=== PATIENT | female | born 1965 | race Caucasian/White ===

== ENCOUNTER 2016-11-26 08:16 | Day surgery (SDC) | payer MEDICAID, OTHER ==
[~2016-11-26] VITALS: Ht 157.5 cm; Wt 68.3 kg
[2016-11-26] VITALS (10 sets, daily range): BP systolic 86–126; BP diastolic 52–79
[2016-11-26] MEDS ORDERED: LIDOCAINE 1% INJ 20 ML (XYLOCAINE) VIAL ONE ×3 (08:36→12:00)
[2016-11-26] MEDS ORDERED: HEParin (CATH LAB) 2,000 ML IV ONE (08:36)
[2016-11-26] MEDS ORDERED: NS IV 1000 ML 1,000 ML ONE (08:36)
[2016-11-26 09:17] LABS: RED BLOOD COUNT 3.42 10^6/uL (4.35-5.85); RED CELL DISTRIBUTION WIDTH 12.9 % (10.0-14.5); WHITE BLOOD COUNT 10.4 10^3/uL (4.3-11.0)
[2016-11-26 09:29] LABS: PROTHROMBIN TIME PATIENT 13.2 SEC (12.2-14.7)
[2016-11-26 09:35] LABS: ALBUMIN 4.2 G/DL (3.2-4.5); BILIRUBIN,TOTAL 0.7 MG/DL (0.1-1.0); CALCIUM 8.9 MG/DL (8.5-10.1); CREATININE SERUM 1.65 MG/DL (0.60-1.30); POTASSIUM 3.6 MMOL/L (3.6-5.0); TOTAL PROTEIN 7.1 G/DL (6.4-8.2)
[2016-11-26] MEDS ORDERED: NS IV 1000 ML 1,000 ML IV SCH (10:00)
[2016-11-26] MEDS ORDERED: FLU TRIvalent (5 YOA+) 2016-17 (AFLURIA) 0.5 ML IM ONE (10:15)
[2016-11-26] MEDS ORDERED: LISI-552 PO (10:22)
[2016-11-26] MEDS ORDERED: LOVA40TA2 PO (10:22)
[2016-11-26] MEDS ORDERED: ACET-2267 PO (10:22)
[2016-11-26] MEDS ORDERED: CLON0.2T PO (10:22)
[2016-11-26] MEDS ORDERED: QUET200T2 PO ×2 (10:22)
[2016-11-26] MEDS ORDERED: PANT40TA2 PO (10:22)
[2016-11-26] MEDS ORDERED: CLOP75TA69 PO (10:22)
[2016-11-26] MEDS ORDERED: fentaNYL INJECTION 100 MCG/2 ML AMP ONE ×2 (10:47→16:41)
[2016-11-26] MEDS ORDERED: MIDAZOLAM 5 MG/5 ML (VERSED) VIAL ONE (10:47)
[2016-11-26] MEDS ORDERED: diphenhydrAMINE 50 MG/ML INJ (BENADRYL) ONE (10:47)
[2016-11-26] MEDS ORDERED: HEParin 1000 UNIT/ML (10ML VIAL) FOR BOLUS ONE (11:47)
[2016-11-26] MEDS ORDERED: NITROGLYCERIN DRIP 25 MG/D5W 250 ML IV ONE (11:49)
[2016-11-26] MEDS ORDERED: ASPIRIN 81 MG CHEW (CHILDREN'S ASA) ONE (12:36)
[2016-11-26] MEDS ORDERED: CLOPIDOGREL 300 MG (PLAVIX) TABLET PO ONE (12:36)
[2016-11-26] MEDS ORDERED: PATIENT MAY USE OWN MEDS, ALL PO SCH (12:45)
[2016-11-26] MEDS ORDERED: ACETAMINOPHEN 500 MG TAB (TYLENOL) PO PRN (12:45)
[2016-11-26] MEDS ORDERED: QUEtiapine 200 MG (SEROquel) TAB IMMEDIATE RELEASE PO SCH ×2 (15:00→21:00)
[2016-11-26] MEDS ORDERED: CLOPIDOGREL 75 MG (PLAVIX) TABLET PO SCH (15:00)
[2016-11-26] MEDS ORDERED: LORazepam INJ 2 MG/ML (ATIVAN) VIAL IVP NR (16:30)
[2016-11-26] MEDS ORDERED: ATROPINE INJECTION 1 MG/10 ML SYR (ABBOTT) ONE (16:42)
[2016-11-26] MEDS: NS IV 1000 ML 1,000 ML IV SCH ×2 (16:59→23:51)
[2016-11-26] MEDS ORDERED: ENOXAPARIN 40 MG/0.4 ML (LOVENOX) SYR SC SCH (20:00)
[2016-11-26] MEDS ORDERED: SIMvastatin 20 MG (ZOCOR) TAB PO SCH (21:00)
[2016-11-26] MEDS ORDERED: cloNIDine 0.2 MG (CATAPRES) TAB PO SCH (21:00)
[2016-11-27] VITALS (10 sets, daily range): BP systolic 86–124; BP diastolic 47–85
[2016-11-27 04:34] LABS: MEAN PLATELET VOLUME 11.7 FL (7.4-10.4); RED BLOOD COUNT 2.99 10^6/uL (4.35-5.85); RED CELL DISTRIBUTION WIDTH 12.8 % (10.0-14.5); WHITE BLOOD COUNT 7.5 10^3/uL (4.3-11.0)
[2016-11-27 05:10] LABS: ANION GAP 8 MMOL/L (5-14); BLOOD UREA NITROGEN 10 MG/DL (7-18); BUN/CREATININE RATIO 10; CALCIUM 7.9 MG/DL (8.5-10.1); CARBON DIOXIDE 19 MMOL/L (21-32); CHLORIDE 113 MMOL/L (98-107); CREATININE SERUM 0.96 MG/DL (0.60-1.30); GFR ESTIMATED > 60; GLUCOSE 105 MG/DL (70-105); POTASSIUM 3.8 MMOL/L (3.6-5.0); SODIUM 140 MMOL/L (135-145)
[2016-11-27] MEDS ORDERED: PANTOPRAZOLE 40 MG (PROTONIX) TAB PO SCH (09:00)
[2016-11-27] MEDS ORDERED: ASPIRIN E.C. 81 MG (ECOTRIN) TAB PO SCH (09:00)
[2016-11-27] MEDS ORDERED: ASPI-983 PO (09:52)
--- NOTE | 2016-11-27 09:53 | Discharge Inst-Cardiology ---
Discharge Inst-Cardiac Discharge Medications New Medications: Aspirin (Aspirin EC) 81 Mg Tablet.dr 81 MG PO DAILY #90 Ref 3 TAB Continued Medications: Acetaminophen (Tylenol Extra Strength) 500 Mg Tablet 500-1000 MG PO Q6H PRN PAIN TAB Clonidine HCl (Clonidine HCl) 0.2 Mg Tablet 0.2 MG PO BID TAB Clopidogrel Bisulfate (Plavix) 75 Mg Tablet 75 MG PO 1500 TAB Lisinopril (Lisinopril) 20 Mg Tablet 20 MG PO 1200 TAB Lovastatin (Lovastatin) 40 Mg Tablet 40 MG PO HS TAB Pantoprazole Sodium (Protonix) 40 Mg Tablet.dr 40 MG PO DAILY TAB Quetiapine Fumarate (Seroquel Xr) 200 Mg Tab.er.24h 200 MG PO 0800,1500 TAB Quetiapine Fumarate (Seroquel Xr) 200 Mg Tab.er.24h 400 MG PO HS TAKES 2 (200MG) TABLETS TAB New, Converted or Re-Newed RX: RX on Chart Patient Instructions Patient Instructions: Please schedule f/u appt to see Dr. Jarrett in 2 weeks STOP SMOKING RADHA JANE Nov 27, 2016 09:53
--- NOTE | 2016-11-27 10:00 | Progress Note-Cardiology ---
Cardiology SOAP Progress Note Subjective: Sitting up in bed. No c/o at this time. Wants to go home. Objective: I&O/Vital Signs Vital Sign - Last 12Hours 11/27/16 11/27/16 11/27/16 11/27/16 05:00 06:00 07:00 07:00 Pulse 84 81 85 90 Resp B/P 102/63 101/59 108/74 Pulse Ox 96 O2 Delivery Nasal Cannula Nasal Cannula Nasal Cannula O2 Flow Rate 2.00 2.00 2.00 11/27/16 11/27/16 08:00 10:30 Pulse 88 88 Resp B/P 124/85 124/85 Pulse Ox 96 O2 Delivery Nasal Cannula O2 Flow Rate 2.00 Weight (Pounds): 150 Weight (Ounces): 9.0 Weight (Calculated Kilograms): 68.449221 Side: left (and right) Condition: DP/PT pulses palpable, extremity w/d/p Bruising: mild bruising Constitutional: AAO x 3 Respiratory: lungs clear to auscultation other (prolonged expiratory phase) Cardiovascular: regular rate-rhythmNo JVD, S1 and S2 Gastrointestional: No tender, soft round Extremities: No significant edema Results/Procedures: Labs Laboratory Tests 11/27/16 03:22: Anion Gap 8, BUN/Creatinine Ratio 10, Blood Urea Nitrogen 10, Calcium Level 7.9L , Carbon Dioxide Level 19L, Chloride Level 113H, Creatinine 0.96, Estimat Glomerular Filtration Rate > 60, Glucose Level 105, Hematocrit 31L, Hemoglobin 9.8L, Mean Corpuscular Hemoglobin 33, Mean Corpuscular Hemoglobin Concent 32, Mean Corpuscular Volume 102H, Mean Platelet Volume 11.7H, Platelet Count 172, Potassium Level 3.8, Red Blood Count 2.99L, Red Cell Distribution Width 12.8, Sodium Level 140, White Blood Count 7.5 Microbiology 11/26/16 MRSA Screen - Final, Complete MRSA not isolated Procedures S/P peripheral angiogram with successful balloon angioplasty. Please refer to Dr. Jarrett's procedure note from 11-26-16 for details. A/P: Assessment: PAD - s/p successful balloon angioplasty to the right ostial iliac with reduction of 90% stenosis to approx 30% Bilat carotid dz of greater than 70% per u/s of June 2016 Exercise stress echo of June 2016 was negative for ischemia or infarct, poor exercise tolerance; LVEF 60% Echocardiogram of June 2016 LVEF 60%; trivial MR/TR. PASP 25-30mmHg HTN HLP - statin, managed by PCP Tobaccoism - cessation advised H/O IV drug use - reportedly in remission Reported h/o near syncope of undetermined etiology - awaiting 24 hour Holter study Plan: PAD with successful balloon angioplasty OK to discharge home today Continue current medications including ASA and Plavix We will see her for f/u in 2 weeks Smoking cessation advised Physician Assessment Physician Assessment Lungs: clear Cor: reg A&R * As documented in our note above * I explained to her in detail the peripheral arterial findings and interventions * I discussed and advised risk factor modification, in particular smoking cessation * I answered questions and advised relatively close outpatient f/u for now RADHA JANE Nov 27, 2016 10:00 ANNABELLA JARRETT MD FACP FAC [facility] Nov 27, 2016 16:54 Dr. Jarrett's procedure note from 11-26-16 for details. A/P: Assessment: PAD - s/p successful balloon angioplasty to the right ostial iliac with reduction of 90% stenosis to approx 30% Bilat carotid dz of greater than 70% per u/s of June 2016 Exercise stress echo of June 2016 was negative for ischemia or infarct, poor exercise tolerance; LVEF 60% Echocardiogram of June 2016 LVEF 60%; trivial MR/TR. PASP 25-30mmHg HTN HLP - statin, managed by PCP Tobaccoism - cessation advised H/O IV drug use - reportedly in remission Reported h/o near syncope of undetermined etiology - awaiting 24 hour Holter study Plan: PAD with successful balloon angioplasty OK to discharge home today Continue current medications including ASA and Plavix We will see her for f/u in 2 weeks Smoking cessation advised RADHA JANE Nov 27, 2016 10:00
[2016-11-27] MEDS ORDERED: lisINopril 20 MG (ZESTRIL) TAB PO SCH (12:00)
--- NOTE | 2016-11-27 12:46 | PROCEDURE REPORT ---
PROCEDURE PHYSICIAN: ANNABELLA AKINS PERIPHERAL ANGIOGRAPHY AND INTERVENTION REPORT DATE OF PROCEDURE: 11/26/2016 Annie Luo is a 51-year-old lady who has multiple risk factors for peripheral arterial disease and who has right leg claudication. A recent noninvasive study indicated an ankle-brachial index of 0.69 on the right side. Given symptoms and noninvasive evidence of significant peripheral arterial disease, peripheral angiography and, if needed, intervention was recommended and an informed consent obtained. PROCEDURE: She is brought to the cardiac catheterization laboratory during a fasting state. Both groins were prepared and draped in the usual sterile fashion. 1% lidocaine was used for local anesthesia. Modified Seldinger technique was used to advance a 5-Grenadian sheath into the right femoral artery. 5-Grenadian pigtail catheter was used for abdominal aortic angiography with the catheter placed at the level of L2. The catheter was then pulled back down to just above the level of the aortoiliac bifurcation and bilateral leg artery angiography was performed with runoff down to the level of the ankles. PERCUTANEOUS INTERVENTION TO THE OSTIAL RIGHT COMMON ILIAC ARTERY: Diagnostic angiography indicated 90% stenosis of the ostium of the right common iliac artery and this was felt to be the likely source of her abnormal ankle-brachial indices and her right leg claudication. We proceeded with percutaneous intervention. We used the modified Seldinger technique to advance a 6-Grenadian sheath into the right femoral artery. We used this Storq wire to cross the lesion and the tip was placed in the aortic arch. We then advanced an [place] 35 balloon measuring 6 x 40 mm to the ostial right common iliac artery and balloon inflation was carried out to 6 atmospheres. Full balloon expansion was achieved. Subsequent angiography revealed approximately 30% residual stenosis at the previous site of 90% stenosis. The balloon and wire were removed. Angiography through the sheath indicated that sheath insertion site was high for device closure. The patient is to have manual sheath removal. The pigtail from the left iliac artery sheath was removed over a wire and the wire was removed and angiography of the left femoral artery performed and we used Mynx to achieve hemostasis on that side. The patient tolerated the procedure well. ABDOMINAL AORTIC ANGIOGRAPHY: Abdominal aortic angiography does not indicate abdominal aortic aneurysm. There is moderate atherosclerosis of the lower abdominal aorta and the aortoiliac junction. The left renal artery has approximately 30% proximal stenosis. The right renal artery has 40 to 50% proximal stenosis. BILATERAL LEG ARTERY ANGIOGRAPHY: On the right side, the right common iliac artery had 90% ostial stenosis to which successful balloon angioplasty was carried out reducing the stenosis 30%. The right external iliac, internal iliac, common femoral, superficial femoral, deep femoral, popliteal and trifurcation arteries are intact and do not exhibit significant disease. On the left side, there is mild atherosclerosis of the ostial portion of the left common iliac but there is no significant stenosis. The left external iliac, internal iliac, common femoral, superficial femoral, deep femoral, popliteal and trifurcation arteries do not exhibit significant disease. There is a 3 vessel runoff on both sides. CONCLUSIONS: Peripheral arterial disease, primarily consisting of a 90% ostial eccentric stenosis within the right common iliac artery to which successful balloon angioplasty was carried out reducing the stenosis from 90% to 30% residual. DISCUSSION AND RECOMMENDATIONS: Risk factor modification has been reviewed with her. She is being hospitalized for observation and for continuing vigorous perioperative hydration, which was initiated prior to the procedure and continued throughout the procedure and will be continued afterwards. This is because the patient has chronic renal insufficiency with creatinine 1.6 and vigorous perioperative hydration is to reduce chances of contrast nephropathy. Job ID: [id number] Dictated Date: 11/26/2016 12:30:28 Bench Grinder Date: 11/27/2016 12:31:22 / anurag [email or web address]
== END 2016-11-27 10:30 | disposition home or self-care (01) ==
LOC: CATH 08:16 → ICU 12:45 → CSD 11-27 08:45 → CATH 11-27 10:30
PROVIDERS: ATTEND Internal Medicine Cardiovascular Disease
DX: I70.213 Atherosclerosis of native arteries of extremities with intermittent claudication, bilateral legs (principal); I70.0 Atherosclerosis of aorta; I70.1 Atherosclerosis of renal artery; N18.9 Chronic kidney disease, unspecified; I12.9 Hypertensive chronic kidney disease with stage 1 through stage 4 chronic kidney disease, or unspecified chronic kidney disease; B19.20 Unspecified viral hepatitis C without hepatic coma; I65.23 Occlusion and stenosis of bilateral carotid arteries; E78.5 Hyperlipidemia, unspecified; I25.10 Atherosclerotic heart disease of native coronary artery without angina pectoris; Z86.73 Personal history of transient ischemic attack (TIA), and cerebral infarction without residual deficits; Z72.0 Tobacco use; Z79.899 Other long term (current) drug therapy
CPT/HCPCS: 36200; 36415; 37220; 75625; 75716; 80048; 80053; 80061; 85027; 85610; 85730; 87081; 93005

== ENCOUNTER → 2016-12-02 | Outpatient (CLI) | payer MEDICAID, OTHER ==
[~2016-12-02] MED LIST: ACET-2267 PO; ASPI-983 PO; CLON0.2T PO; CLOP75TA69 PO; LISI-552 PO; LOVA40TA2 PO; PANT40TA2 PO; QUET200T2 PO
== END ==
LOC: CARD 11:12
PROVIDERS: ATTEND Nurse Practitioner Family
DX: R55 Syncope and collapse (principal)
CPT/HCPCS: 93225; 93226